=== PATIENT | male | born 1945 | race Caucasian/White ===

== ENCOUNTER → 2016-11-18 | Outpatient (CLI) | payer MEDICARE, OTHER ==
[~2016-11-18] MED LIST: ASPIRIN81 MG PO; FINASTERIDE5 MG PO; FLOMAX0.4 M1 PO; HYDROCODON-ACE1 EAC7 PO; LEVOFLOXACIN500 MG PO; METOPROLOL TAR25 MG PO; MIRALAX17 GM PO; NO MEDICATIONS; NORCO 7.5-3251 EACH PO; NORVASC2.5 MG PO; QUINAPRIL HCL10 MG PO; RAPAFLO8 MG PO
== END | disposition home or self-care (01) ==
LOC: CLAB 10:50
DX: M45.6 Ankylosing spondylitis lumbar region (principal)
CPT/HCPCS: 36415; 86812